=== PATIENT | female | born 1995 | race African-American/Black ===

== ENCOUNTER 2022-12-02 15:06 | Inpatient (IN) | payer OTHER ==
[~2022-12-02] VITALS: Ht 162.6 cm; Wt 63.1 kg
[2022-12-02 15:42] LABS: BASO % 0.1 % (0.0-1.0); EOS % 0.4 % (0.0-3.0); HEMATOCRIT 36.7 % (36.0-47.0); HEMOGLOBIN 11.9 g/dl (12.0-15.5); LYMPH # 1.8 10^3/uL (1.5-5.0); LYMPH % 15.6 % (24.0-44.0); MEAN CORPUSCULAR HEMOGLOBIN 26.2 pg (27.0-33.0); MEAN CORPUSCULAR HGB CONC 32.4 g/dl (32.0-36.5); MEAN CORPUSCULAR VOLUME 80.7 fl (80.0-96.0); MONO # 0.9 10^3/uL (0.0-0.8); MONO % 7.4 % (2.0-8.0); NEUTROPHILS # 8.7 10^3/uL (1.5-8.5); NEUTROPHILS % 76.1 % (36.0-66.0); PLATELET COUNT, AUTOMATED 319 10^3/uL (150-450); RED BLOOD COUNT 4.55 10^6/uL (4.00-5.40); WHITE BLOOD COUNT 11.4 10^3/uL (4.0-10.0)
[2022-12-02] MEDS ORDERED: ACETAMINOPHEN TAB 650MG DOSE (2X325MG) PO ONE (15:55)
[2022-12-02 15:56] LABS: ABG BASE EXCESS -3.7 (-2.0-2.0); ABG HCO3 19.6 MMOL/L (22.0-26.0); ABG O2 SATURATION 97.6 % (95.0-99.0); ABG PARTIAL PRESSURE CO2 30.4 mmHg (35.0-45.0); ABG PARTIAL PRESSURE O2 96.2 mmHg (75.0-100.0); ABG STANDARD HCO3 21.4 MMOL/L. (22.0-26.0); ABG TOTAL CO2 20.6 MMOL/L (22.0-29.0); ABG pH (ARTERIAL) 7.428 UNITS (7.350-7.450)
[2022-12-02] MEDS ORDERED: NS 500 ML IV ONE (16:00)
[2022-12-02 16:08] LABS: ETHYL ALCOHOL (ETHANOL) < 0.003 % (0.000-0.010)
[2022-12-02 16:09] LABS: ACETAMINOPHEN LEVEL < 2.0 UG/ML (10.0-20.0); CPK CREATINE PHOSPHOKINASE 124 U/L (34-145); SALICYLATE LEVEL < 3.0 MG/DL (<30)
[2022-12-02 16:10] LABS: ALBUMIN 3.7 G/DL (3.2-5.2); ALKALINE PHOSPHATASE 55 U/L (46-116); ALT/SGPT 18 U/L (7.0-40); AST/SGOT 11 U/L (<34); BILIRUBIN,DIRECT 0.2 MG/DL (<0.4); BILIRUBIN,TOTAL 0.5 MG/DL (0.3-1.2); BLOOD UREA NITROGEN 12 MG/DL (9-23); CALCIUM LEVEL 8.9 MG/DL (8.5-10.1); CARBON DIOXIDE LEVEL 21 MMOL/L (20-31); CHLORIDE LEVEL 105 MMOL/L (98-107); CK-MB VALUE MASS < 1.0 NG/ML (<3.6); CREATININE FOR GFR 0.67 MG/DL (0.55-1.30); GLOMERULAR FILTRATION RATE > 60.0 (>60); GLUCOSE, FASTING 93 MG/DL (60-100); POTASSIUM SERUM 3.7 MMOL/L (3.5-5.1); SODIUM LEVEL 135 MMOL/L (136-145); TOTAL PROTEIN 7.6 G/DL (5.7-8.2)
[2022-12-02 16:11] LABS: THYROID STIMULATING HORMONE 2.157 uIU/ML (0.55-4.78)
[2022-12-02] MEDS ORDERED: ISOVUE-370 76% 100ML VIAL As Ordered ONE (16:12)
[2022-12-02] MEDS ORDERED: BENA25TA5 PO (16:19)
[2022-12-02] MEDS ORDERED: PRED5TA PO (16:19)
[2022-12-02] MEDS ORDERED: CLAR10CA3 PO (16:19)
[2022-12-02] MEDS ORDERED: PLAQ200T4 PO (16:19)
[2022-12-02] MEDS ORDERED: PEPC1TAB5 PO (16:22)
[2022-12-02] MEDS ORDERED: PREN1CHW6 PO (16:22)
[2022-12-02 17:08] LABS: AMPHETAMINES LEVEL URINE NEGATIVE (NEGATIVE); BARBITURATES URINE NEGATIVE (NEGATIVE); BENZODIAZEPINES URINE NEGATIVE (NEGATIVE); CANNABINOIDS URINE NEGATIVE (NEGATIVE); COCAINE METABOLITE URINE NEGATIVE (NEGATIVE); METHADONE URINE NEGATIVE (NEGATIVE); OPIATES URINE NEGATIVE (NEGATIVE); PHENCYCLIDINE URINE NEGATIVE (NEGATIVE)
[2022-12-02] MEDS ORDERED: LevoFLOXacin IV 750 MG in IV 1 EA IV ONE (17:10)
[2022-12-02] MEDS ORDERED: levETIRAcetam INJection 1,000 MG in D5W 100 ML IV ONE (18:25)
[2022-12-02] MEDS ORDERED: MED REC IN PROGRESS XX SCH (19:35)
[2022-12-02 19:45] LABS: PROCALCITONIN <0.04 ng/ml
[2022-12-02] MEDS ORDERED: ESTR1TAB PV (19:52)
[2022-12-02] MEDS ORDERED: CRIN8GEL4 PV (19:52)
[2022-12-02] MEDS ORDERED: PROG1CAP9 PV (19:52)
[2022-12-02] MEDS ORDERED: PROG50IN4 IM (20:05)
[2022-12-02] MEDS ORDERED: TACR0.5C3 PO (20:05)
[2022-12-02] MEDS ORDERED: ENOX30IN3 SQ (20:05)
[2022-12-02] MEDS ORDERED: HOME MED LIST COMPLETE! XX SCH (20:40)
[2022-12-02] MEDS: PROGESTERONE PV SCH (21:00)
[2022-12-02] MEDS: PROGESTERONE IM SCH (21:00)
[2022-12-03] MEDS ORDERED: UNRESOLVED PATIENT OWN MED ORDER XX SCH (00:01)
[2022-12-03 06:35] LABS: HEMATOCRIT 34.9 % (36.0-47.0); HEMOGLOBIN 11.3 g/dl (12.0-15.5); MEAN CORPUSCULAR HEMOGLOBIN 26.3 pg (27.0-33.0); MEAN CORPUSCULAR HGB CONC 32.4 g/dl (32.0-36.5); MEAN CORPUSCULAR VOLUME 81.2 fl (80.0-96.0); PLATELET COUNT, AUTOMATED 286 10^3/uL (150-450); WHITE BLOOD COUNT 8.6 10^3/uL (4.0-10.0)
[2022-12-03 06:52] LABS: BLOOD UREA NITROGEN 13 MG/DL (9-23); CARBON DIOXIDE LEVEL 21 MMOL/L (20-31); CHLORIDE LEVEL 109 MMOL/L (98-107); CREATININE FOR GFR 0.61 MG/DL (0.55-1.30); GLOMERULAR FILTRATION RATE > 60.0 (>60); GLUCOSE, FASTING 89 MG/DL (60-100); MAGNESIUM LEVEL 1.7 MG/DL (1.8-2.4); POTASSIUM SERUM 4.2 MMOL/L (3.5-5.1); SODIUM LEVEL 138 MMOL/L (136-145)
[2022-12-03] MEDS: ENOXAPARIN 40MG/0.4ML SYRINGE (J1650 PER 10MG) SC SCH (07:40)
[2022-12-03] MEDS ORDERED: MAGNESIUM OXIDE 400MG TAB (MAG-OX) PO ONE (07:45)
[2022-12-03] MEDS ORDERED: levETIRAcetam INJection 500 MG in D5W MINI-BAG PLUS 100 ML IV SCH (08:00)
[2022-12-03] MEDS: PRENATAL VITAMINS CHEWABLE TABLET PO SCH ×2 (09:00→23:00)
[2022-12-03] MEDS ORDERED: ASPI81TA26 PO (10:09)
[2022-12-03] MEDS ORDERED: NOVA1000 SC (10:09)
[2022-12-03] MEDS ORDERED: LEUP1INJ4 INJ (10:09)
[2022-12-03] MEDS: estradioL 1 MG TAB PV SCH (11:27)
[2022-12-03] MEDS: predniSONE 5 MG TAB PO SCH ×2 (11:27→22:51)
[2022-12-03] MEDS: PROGESTERONE PV SCH ×2 (11:27→21:00)
[2022-12-03] MEDS: LORATADINE 10 MG TAB PO SCH (11:27)
[2022-12-03] MEDS: FAMOTIDINE 20 MG TAB PO SCH (11:28)
[2022-12-03] MEDS: TACROLIMUS 0.5MG CAP PO SCH ×2 (11:28→22:52)
[2022-12-03] MEDS: MAG SULF 1GM/100ML (MAG RUN) 1 GM in IV 1 EA IV SCH ×2 (11:31→16:50)
[2022-12-03] MEDS ORDERED: ACETAMINOPHEN TAB 650MG DOSE (2X325MG) PO PRN (12:00)
[2022-12-03] MEDS ORDERED: LORazepam 2 MG/ML 1ML VIAL As Ordered ONE ×2 (12:07→12:15)
[2022-12-03] MEDS: LORazepam 2 MG/ML 1ML VIAL IV PRN ×2 (12:16→13:58)
[2022-12-03] MEDS ORDERED: levETIRAcetam INJection 500 MG in D5W MINI-BAG PLUS 100 ML IV ONE (12:45)
[2022-12-03] MEDS ORDERED: LORazepam 2 MG/ML 1ML VIAL IV PRN (15:00)
[2022-12-03 16:16] VITALS: BP 126/69; O2SAT 99
[2022-12-03 16:30] VITALS: TEMP 98
[2022-12-03] MEDS ORDERED: MAG SULF 1GM/100ML (MAG RUN) 1 GM in IV 1 EA IV ONE (16:35)
[2022-12-03] MEDS: LR 1,000 ML IV SCH (16:49)
[2022-12-03] MEDS: ASPIRIN 81MG ENTERIC TABLET PO SCH (16:50)
[2022-12-03] MEDS ORDERED: LevoFLOXacin IV 750 MG in IV 1 EA IV SCH (18:00)
[2022-12-03 20:00] VITALS: BP 138/75; TEMP 98.3
[2022-12-03] MEDS: PROGESTERONE MICRONIZED 200 MG PV SCH (21:00)
[2022-12-03] MEDS: PROGESTERONE IM SCH (21:00)
[2022-12-03] MEDS ORDERED: levETIRAcetam 250MG TABLET (KEPPRA) PO SCH (21:00)
[2022-12-03] MEDS: diphenhydrAMINE 25MG CAP PO SCH (22:51)
[2022-12-03] MEDS: HYDROXYCHLOROQUINE 200 MG TAB PO SCH (22:53)
[2022-12-03] MEDS: levETIRAcetam INJection 1,000 MG in D5W 100 ML IV SCH (23:00)
[2022-12-03] MEDS: ONDANSETRON 4MG 2ML VIAL IV PRN (23:02)
[2022-12-04] VITALS (7 sets, daily range): BP systolic 102–127; BP diastolic 49–76; TEMP 97–98.3; O2SAT 98–100
[2022-12-04] MEDS: estradioL 1 MG TAB PV SCH ×3 (01:22→21:26)
[2022-12-04] MEDS: LR 1,000 ML IV SCH ×3 (04:30→15:34)
[2022-12-04 06:05] LABS: BASO % 0.1 % (0.0-1.0); EOS % 0.1 % (0.0-3.0); HEMATOCRIT 37.4 % (36.0-47.0); HEMOGLOBIN 11.9 g/dl (12.0-15.5); LYMPH # 1.5 10^3/uL (1.5-5.0); LYMPH % 15.8 % (24.0-44.0); MEAN CORPUSCULAR HEMOGLOBIN 26.3 pg (27.0-33.0); MEAN CORPUSCULAR HGB CONC 31.8 g/dl (32.0-36.5); MEAN CORPUSCULAR VOLUME 82.7 fl (80.0-96.0); MONO # 0.7 10^3/uL (0.0-0.8); MONO % 6.9 % (2.0-8.0); NEUTROPHILS # 7.2 10^3/uL (1.5-8.5); NEUTROPHILS % 76.9 % (36.0-66.0); PLATELET COUNT, AUTOMATED 282 10^3/uL (150-450); RED BLOOD COUNT 4.52 10^6/uL (4.00-5.40); WHITE BLOOD COUNT 9.4 10^3/uL (4.0-10.0)
[2022-12-04 06:41] LABS: BLOOD UREA NITROGEN 10 MG/DL (9-23); CALCIUM LEVEL 9.1 MG/DL (8.5-10.1); CARBON DIOXIDE LEVEL 20 MMOL/L (20-31); CHLORIDE LEVEL 106 MMOL/L (98-107); GLOMERULAR FILTRATION RATE > 60.0 (>60); GLUCOSE, FASTING 86 MG/DL (60-100); MAGNESIUM LEVEL 1.9 MG/DL (1.8-2.4); POTASSIUM SERUM 4.3 MMOL/L (3.5-5.1); SODIUM LEVEL 137 MMOL/L (136-145)
[2022-12-04] MEDS: levETIRAcetam INJection 1,000 MG in D5W 100 ML IV SCH ×2 (08:11→21:34)
[2022-12-04] MEDS: PRENATAL VITAMINS CHEWABLE TABLET PO SCH ×3 (08:12→21:26)
[2022-12-04] MEDS: predniSONE 5 MG TAB PO SCH ×2 (08:12→21:26)
[2022-12-04] MEDS: TACROLIMUS 0.5MG CAP PO SCH ×3 (08:12→21:26)
[2022-12-04] MEDS: ASPIRIN 81MG ENTERIC TABLET PO SCH (08:12)
[2022-12-04] MEDS: FAMOTIDINE 20 MG TAB PO SCH (08:12)
[2022-12-04] MEDS: ENOXAPARIN 40MG/0.4ML SYRINGE (J1650 PER 10MG) SC SCH (08:12)
[2022-12-04] MEDS: LORATADINE 10 MG TAB PO SCH (08:12)
[2022-12-04] MEDS: PROGESTERONE MICRONIZED 200 MG PV SCH ×2 (08:13→21:26)
[2022-12-04] MEDS: PROGESTERONE PV SCH ×2 (08:28→21:26)
[2022-12-04 15:53] LABS: FREE T4 0.88 NG/DL (0.89-1.76)
[2022-12-04] MEDS: HYDROXYCHLOROQUINE 200 MG TAB PO SCH (21:00)
[2022-12-04] MEDS: diphenhydrAMINE 25MG CAP PO SCH ×2 (21:00→21:26)
[2022-12-04] MEDS: PROGESTERONE IM SCH (21:27)
[2022-12-04] MEDS: ONDANSETRON 4MG 2ML VIAL IV PRN (21:45)
[2022-12-05] MEDS: LR 1,000 ML IV SCH ×2 (02:18→08:00)
[2022-12-05 04:14] VITALS: BP 106/71; TEMP 97.5; O2SAT 100
[2022-12-05 07:21] LABS: BASO % 0.1 % (0.0-1.0); EOS % 0.1 % (0.0-3.0); HEMATOCRIT 34.1 % (36.0-47.0); HEMOGLOBIN 11.1 g/dl (12.0-15.5); LYMPH # 1.6 10^3/uL (1.5-5.0); LYMPH % 16.8 % (24.0-44.0); MEAN CORPUSCULAR HEMOGLOBIN 26.7 pg (27.0-33.0); MEAN CORPUSCULAR HGB CONC 32.6 g/dl (32.0-36.5); MONO # 0.7 10^3/uL (0.0-0.8); MONO % 7.5 % (2.0-8.0); NEUTROPHILS # 7.1 10^3/uL (1.5-8.5); NEUTROPHILS % 75.3 % (36.0-66.0); PLATELET COUNT, AUTOMATED 332 10^3/uL (150-450); RED BLOOD COUNT 4.16 10^6/uL (4.00-5.40); WHITE BLOOD COUNT 9.4 10^3/uL (4.0-10.0)
[2022-12-05 07:27] LABS: BLOOD UREA NITROGEN 10 MG/DL (9-23); CALCIUM LEVEL 9.2 MG/DL (8.5-10.1); CARBON DIOXIDE LEVEL 22 MMOL/L (20-31); CHLORIDE LEVEL 105 MMOL/L (98-107); CREATININE FOR GFR 0.59 MG/DL (0.55-1.30); GLOMERULAR FILTRATION RATE > 60.0 (>60); GLUCOSE, FASTING 92 MG/DL (60-100); MAGNESIUM LEVEL 1.7 MG/DL (1.8-2.4); POTASSIUM SERUM 4.3 MMOL/L (3.5-5.1); SODIUM LEVEL 137 MMOL/L (136-145)
[2022-12-05 08:56] VITALS: BP 140/71; TEMP 98.4; O2SAT 99
[2022-12-05] MEDS ORDERED: MAGNESIUM OXIDE 400MG TAB (MAG-OX) PO ONE (09:00)
[2022-12-05] MEDS: predniSONE 5 MG TAB PO SCH ×2 (09:00→09:05)
[2022-12-05] MEDS: ASPIRIN 81MG ENTERIC TABLET PO SCH (09:04)
[2022-12-05] MEDS: PRENATAL VITAMINS CHEWABLE TABLET PO SCH (09:04)
[2022-12-05] MEDS: LORATADINE 10 MG TAB PO SCH (09:05)
[2022-12-05] MEDS: FAMOTIDINE 20 MG TAB PO SCH (09:05)
[2022-12-05] MEDS: ENOXAPARIN 40MG/0.4ML SYRINGE (J1650 PER 10MG) SC SCH (09:05)
[2022-12-05] MEDS: TACROLIMUS 0.5MG CAP PO SCH (09:05)
[2022-12-05] MEDS: estradioL 1 MG TAB PV SCH (09:06)
[2022-12-05] MEDS: PROGESTERONE PV SCH (09:06)
[2022-12-05] MEDS: levETIRAcetam INJection 1,000 MG in D5W 100 ML IV SCH (09:06)
[2022-12-05] MEDS: PROGESTERONE MICRONIZED 200 MG PV SCH (09:07)
[2022-12-05] MEDS ORDERED: KEPP10002 PO ×2 (10:58→17:44)
[2022-12-05] MEDS ORDERED: MAG SULF 1GM/100ML (MAG RUN) 1 GM in IV 1 EA IV ONE (12:00)
== END 2022-12-05 13:15 | disposition home or self-care (01) | DRG 101 ==
LOC: M ED 15:06 → M ED INP 19:06 → M PCU 12-03 15:49
PROVIDERS: ADMIT Family Medicine; ATTEND Internal Medicine
PROC: B246ZZZ Ultrasonography of Right and Left Heart (ICD-10-PCS; principal; 2022-12-04)
DX: G40.909 Epilepsy, unspecified, not intractable, without status epilepticus (principal); R55 Syncope and collapse; I34.1 Nonrheumatic mitral (valve) prolapse; G47.33 Obstructive sleep apnea (adult) (pediatric); J45.909 Unspecified asthma, uncomplicated; E83.42 Hypomagnesemia; R50.9 Fever, unspecified; Z79.52 Long term (current) use of systemic steroids; Z79.899 Other long term (current) drug therapy; Z88.6 Allergy status to analgesic agent; Z88.0 Allergy status to penicillin; Z91.018 Allergy to other foods; Z62.810 Personal history of physical and sexual abuse in childhood

== ENCOUNTER 2022-12-08 09:06 | Emergency (ER) | payer OTHER ==
[~2022-12-08 09:06] MED LIST: ASPI81TA26 PO; BENA25TA5 PO; CLAR10CA3 PO; CRIN8GEL4 PV; ENOX30IN3 SQ; ESTR1TAB PV; KEPP10002 PO; LEUP1INJ4 INJ; NOVA1000 SC; PEPC1TAB5 PO; PLAQ200T4 PO; PRED5TA PO; PREN1CHW6 PO; PROG1CAP9 PV; PROG50IN4 IM; TACR0.5C3 PO
[2022-12-08 09:29] VITALS: BP 126/74; O2SAT 100
[2022-12-08 09:59] VITALS: TEMP 99.4
[2022-12-08 11:51] LABS: HEMATOCRIT 37.7 % (36.0-47.0); HEMOGLOBIN 12.1 g/dl (12.0-15.5); MEAN CORPUSCULAR HEMOGLOBIN 26.2 pg (27.0-33.0); MEAN CORPUSCULAR HGB CONC 32.1 g/dl (32.0-36.5); MEAN CORPUSCULAR VOLUME 81.8 fl (80.0-96.0); PLATELET COUNT, AUTOMATED 415 10^3/uL (150-450); RED BLOOD COUNT 4.61 10^6/uL (4.00-5.40); WHITE BLOOD COUNT 7.2 10^3/uL (4.0-10.0)
[2022-12-08 12:35] LABS: HCG, SERUM QUALITATIVE NEGATIVE (NEGATIVE)
[2022-12-08 13:26] LABS: BLOOD UREA NITROGEN 9 MG/DL (9-23); CALCIUM LEVEL 9.3 MG/DL (8.5-10.1); CARBON DIOXIDE LEVEL 20 MMOL/L (20-31); CHLORIDE LEVEL 105 MMOL/L (98-107); CREATININE FOR GFR 0.59 MG/DL (0.55-1.30); GLOMERULAR FILTRATION RATE > 60.0 (>60); GLUCOSE, FASTING 78 MG/DL (60-100); POTASSIUM SERUM 4.2 MMOL/L (3.5-5.1); SODIUM LEVEL 136 MMOL/L (136-145)
[2022-12-08 13:39] LABS: CPK CREATINE PHOSPHOKINASE 130 U/L (34-145)
== END 2022-12-08 13:09 | disposition home or self-care (01) ==
LOC: M ED 09:06 → EDBD 09:06 → M ED 13:09
DX: G40.89 Other seizures (principal); Z88.0 Allergy status to penicillin; Z88.8 Allergy status to other drugs, medicaments and biological substances; Z91.018 Allergy to other foods; Z79.899 Other long term (current) drug therapy; Z79.82 Long term (current) use of aspirin; Z79.52 Long term (current) use of systemic steroids

== ENCOUNTER 2023-04-01 06:09 | Emergency (ER) | payer OTHER ==
[~2023-04-01] VITALS: Ht 162.6 cm; Wt 63.2 kg
[~2023-04-01 06:09] MED LIST changes: +JOBSMIS65 MC
[2023-04-01] MEDS ORDERED: [UNRECOGNIZED DRUG - CODE] (11:21)
[2023-04-01] MEDS ORDERED: METF-838 (11:21)
[2023-04-01] MEDS ORDERED: NALT50TA4 PO (11:21)
[2023-04-01] MEDS ORDERED: ONDA4TAB6 (11:21)
[2023-04-01 12:04] LABS: BASO # 0.1 10^3/uL (0.0-0.2); BASO % 0.2 % (0.0-1.0); EOS # 0.1 10^3/uL (0.0-0.5); EOS % 0.5 % (0.0-3.0); HEMATOCRIT 35.2 % (36.0-47.0); LYMPH # 3.5 10^3/uL (1.5-5.0); LYMPH % 14.4 % (24.0-44.0); MEAN CORPUSCULAR HEMOGLOBIN 27.3 pg (27.0-33.0); MEAN CORPUSCULAR HGB CONC 34.1 g/dl (32.0-36.5); MONO % 4.1 % (2.0-8.0); NEUTROPHILS # 19.4 10^3/uL (1.5-8.5); NEUTROPHILS % 80.1 % (36.0-66.0); PLATELET COUNT, AUTOMATED 391 10^3/uL (150-450); WHITE BLOOD COUNT 24.2 10^3/uL (4.0-10.0)
[2023-04-01 12:29] LABS: LIPASE 24 U/L (12-53)
[2023-04-01 12:31] LABS: ALBUMIN 3.7 G/DL (3.2-5.2); ALKALINE PHOSPHATASE 91 U/L (46-116); ALT/SGPT 14 U/L (7.0-40); AST/SGOT 11 U/L (<34); BILIRUBIN,DIRECT < 0.1 MG/DL (<0.4); BILIRUBIN,TOTAL 0.2 MG/DL (0.3-1.2); BLOOD UREA NITROGEN 9 MG/DL (9-23); CARBON DIOXIDE LEVEL 22 MMOL/L (20-31); CHLORIDE LEVEL 108 MMOL/L (98-107); CREATININE FOR GFR 0.48 MG/DL (0.55-1.30); GLOMERULAR FILTRATION RATE > 60.0 (>60); GLUCOSE, FASTING 86 MG/DL (60-100); POTASSIUM SERUM 3.4 MMOL/L (3.5-5.1); SODIUM LEVEL 138 MMOL/L (136-145); TOTAL PROTEIN 7.6 G/DL (5.7-8.2)
[2023-04-01] MEDS ORDERED: NS 1,000 ML IV ONE (12:35)
[2023-04-01 13:45] VITALS: BP 122/64; TEMP 99.7; O2SAT 100
== END 2023-04-01 14:36 | disposition home or self-care (01) ==
LOC: M ED 06:09
DX: R19.7 Diarrhea, unspecified (principal); Z88.0 Allergy status to penicillin; Z88.8 Allergy status to other drugs, medicaments and biological substances; Z91.018 Allergy to other foods; Z79.899 Other long term (current) drug therapy; Z79.52 Long term (current) use of systemic steroids; Z79.890 Hormone replacement therapy; Z79.84 Long term (current) use of oral hypoglycemic drugs

== ENCOUNTER 2023-04-09 07:29 | Emergency (ER) | payer OTHER ==
[~2023-04-09] VITALS: Ht 162.6 cm; Wt 63.5 kg
[2023-04-09 07:29] VITALS: BP 132/75; TEMP 98.2; O2SAT 100
[~2023-04-09 07:29] MED LIST changes: +METF-838; +NALT50TA4 PO; +ONDA4TAB6; +[UNRECOGNIZED DRUG - CODE]
== END 2023-04-09 09:59 | disposition home or self-care (01) ==
LOC: M ED 07:29
DX: F43.0 Acute stress reaction (principal); Z33.1 Pregnant state, incidental; Z88.0 Allergy status to penicillin; Z88.8 Allergy status to other drugs, medicaments and biological substances; Z91.018 Allergy to other foods; Z79.899 Other long term (current) drug therapy; Z79.3 Long term (current) use of hormonal contraceptives; Z79.84 Long term (current) use of oral hypoglycemic drugs

== ENCOUNTER 2023-04-14 16:44 | Emergency (ER) | payer OTHER ==
[~2023-04-14] VITALS: Ht 162.6 cm; Wt 63.8 kg
[2023-04-14 18:54] LABS: BASO # 0.1 10^3/uL (0.0-0.2); BASO % 0.2 % (0.0-1.0); EOS % 0.2 % (0.0-3.0); HEMATOCRIT 34.5 % (36.0-47.0); HEMOGLOBIN 11.2 g/dl (12.0-15.5); LYMPH # 2.7 10^3/uL (1.5-5.0); LYMPH % 10.5 % (24.0-44.0); MEAN CORPUSCULAR HEMOGLOBIN 26.2 pg (27.0-33.0); MEAN CORPUSCULAR HGB CONC 32.5 g/dl (32.0-36.5); MEAN CORPUSCULAR VOLUME 80.8 fl (80.0-96.0); MONO % 3.8 % (2.0-8.0); NEUTROPHILS % 84.6 % (36.0-66.0); PLATELET COUNT, AUTOMATED 347 10^3/uL (150-450); RED BLOOD COUNT 4.27 10^6/uL (4.00-5.40)
[2023-04-14 19:21] LABS: BLOOD UREA NITROGEN 10 MG/DL (9-23); CARBON DIOXIDE LEVEL 25 MMOL/L (20-31); CHLORIDE LEVEL 104 MMOL/L (98-107); CREATININE FOR GFR 0.57 MG/DL (0.55-1.30); GLOMERULAR FILTRATION RATE > 60.0 (>60); GLUCOSE, FASTING 100 MG/DL (60-100); POTASSIUM SERUM 3.6 MMOL/L (3.5-5.1); SODIUM LEVEL 137 MMOL/L (136-145)
[2023-04-15 06:38] LABS: CK-MB VALUE MASS < 1.0 NG/ML (<3.6)
[2023-04-15 06:40] LABS: CPK CREATINE PHOSPHOKINASE 75 U/L (34-145); MB/CK RELATIVE INDEX 1.33 (< OR =4)
[2023-04-15 08:33] VITALS: BP 116/66; TEMP 97.8; O2SAT 99
== END 2023-04-15 08:35 | disposition home or self-care (01) ==
LOC: M ED 16:44
DX: O99.411 Diseases of the circulatory system complicating pregnancy, first trimester (principal); O24.111 Pre-existing type 2 diabetes mellitus, in pregnancy, first trimester; Z3A.01 Less than 8 weeks gestation of pregnancy; Z79.4 Long term (current) use of insulin; Z79.899 Other long term (current) drug therapy; Z88.0 Allergy status to penicillin; Z88.6 Allergy status to analgesic agent; Z88.8 Allergy status to other drugs, medicaments and biological substances; Z91.018 Allergy to other foods

== ENCOUNTER 2023-04-20 13:29 | Emergency (ER) | payer OTHER ==
[~2023-04-20] VITALS: Ht 162.6 cm; Wt 63.4 kg
[2023-04-20 16:31] LABS: APPEARANCE, URINE HAZY (CLEAR); BACTERIA, URINE AUTO NEGATIVE (NEGATIVE); BILIRUBIN, URINE AUTO NEGATIVE (NEGATIVE); BLOOD, URINE BLOOD NEGATIVE (NEGATIVE); COLOR, URINE YELLOW (YELLOW); GLUCOSE, URINE (UA) AUTO NEGATIVE (NEGATIVE); KETONE, URINE AUTO NEGATIVE (NEGATIVE); LEUKOCYTE ESTERASE, URINE AUTO 1+ (NEGATIVE); MUCUS, URINE LARGE (NEGATIVE); NITRITE, URINE AUTO NEGATIVE (NEGATIVE); PROTEIN, URINE AUTO 1+ mg/dL (NEGATIVE); RBC, URINE AUTO 4 /HPF (0-3); SPECIFIC GRAVITY URINE AUTO 1.032 (1.002-1.035); SQUAMOUS EPITHELIAL CELL UR AU 5 /HPF (0-6); UROBILINOGEN, URINE AUTO 0.2 mg/dL (0.0-2.0); WBC, URINE AUTO 4 /HPF (0-3)
[2023-04-20 16:35] LABS: HEMATOCRIT 37.6 % (36.0-47.0); HEMOGLOBIN 12.4 g/dl (12.0-15.5); MEAN CORPUSCULAR HEMOGLOBIN 26.3 pg (27.0-33.0); MEAN CORPUSCULAR VOLUME 79.8 fl (80.0-96.0); PLATELET COUNT, AUTOMATED 374 10^3/uL (150-450); RED BLOOD COUNT 4.71 10^6/uL (4.00-5.40); WHITE BLOOD COUNT 7.8 10^3/uL (4.0-10.0)
[2023-04-20 16:49] LABS: ALBUMIN 3.6 G/DL (3.2-5.2); ALKALINE PHOSPHATASE 78 U/L (46-116); ALT/SGPT 13 U/L (7.0-40); AST/SGOT 12 U/L (<34); BILIRUBIN,TOTAL 0.2 MG/DL (0.3-1.2); BLOOD UREA NITROGEN 9 MG/DL (9-23); CALCIUM LEVEL 9.8 MG/DL (8.5-10.1); CARBON DIOXIDE LEVEL 25 MMOL/L (20-31); CHLORIDE LEVEL 105 MMOL/L (98-107); CREATININE FOR GFR 0.56 MG/DL (0.55-1.30); GLOMERULAR FILTRATION RATE > 60.0 (>60); GLUCOSE, FASTING 87 MG/DL (60-100); POTASSIUM SERUM 4.2 MMOL/L (3.5-5.1); SODIUM LEVEL 138 MMOL/L (136-145); TOTAL PROTEIN 7.6 G/DL (5.7-8.2)
[2023-04-20 17:02] LABS: HCG, SERUM QUANTITATIVE 63644.2 MIU/ML (<4.2)
[2023-04-20 19:11] VITALS: BP 111/67; TEMP 99; O2SAT 100
== END 2023-04-20 19:21 | disposition home or self-care (01) ==
LOC: M ED 13:29
DX: O46.91 Antepartum hemorrhage, unspecified, first trimester (principal); Z3A.01 Less than 8 weeks gestation of pregnancy

== ENCOUNTER 2023-05-21 05:59 | Emergency (ER) | payer OTHER ==
[~2023-05-21] VITALS: Ht 160 cm; Wt 62.5 kg
[2023-05-21 09:15] VITALS: BP 119/72; TEMP 98.5; O2SAT 100
== END 2023-05-21 09:23 | disposition home or self-care (01) ==
LOC: M ED 05:59
DX: F32.A Depression, unspecified (principal); J45.909 Unspecified asthma, uncomplicated; I34.1 Nonrheumatic mitral (valve) prolapse

== ENCOUNTER 2023-05-25 12:42 | Emergency (ER) | payer OTHER ==
[~2023-05-25] VITALS: Ht 162.6 cm; Wt 63.1 kg
[2023-05-25 14:00] LABS: BASO % 0.2 % (0.0-1.0); EOS % 0.1 % (0.0-3.0); HEMATOCRIT 38.5 % (36.0-47.0); HEMOGLOBIN 12.7 g/dl (12.0-15.5); LYMPH # 2.1 10^3/uL (1.5-5.0); LYMPH % 22.1 % (24.0-44.0); MEAN CORPUSCULAR HEMOGLOBIN 26.8 pg (27.0-33.0); MEAN CORPUSCULAR VOLUME 81.2 fl (80.0-96.0); MONO # 0.5 10^3/uL (0.0-0.8); MONO % 5.1 % (2.0-8.0); NEUTROPHILS % 72.3 % (36.0-66.0); PLATELET COUNT, AUTOMATED 284 10^3/uL (150-450); RED BLOOD COUNT 4.74 10^6/uL (4.00-5.40); WHITE BLOOD COUNT 9.7 10^3/uL (4.0-10.0)
[2023-05-25 16:26] LABS: APPEARANCE, URINE CLEAR (CLEAR); BACTERIA, URINE AUTO NEGATIVE (NEGATIVE); BILIRUBIN, URINE AUTO NEGATIVE (NEGATIVE); BLOOD, URINE BLOOD NEGATIVE (NEGATIVE); COLOR, URINE YELLOW (YELLOW); GLUCOSE, URINE (UA) AUTO NEGATIVE (NEGATIVE); KETONE, URINE AUTO TRACE mg/dL (NEGATIVE); LEUKOCYTE ESTERASE, URINE AUTO 1+ (NEGATIVE); MUCUS, URINE SMALL (NEGATIVE); NITRITE, URINE AUTO NEGATIVE (NEGATIVE); PROTEIN, URINE AUTO 1+ mg/dL (NEGATIVE); RBC, URINE AUTO 3 /HPF (0-3); SPECIFIC GRAVITY URINE AUTO 1.024 (1.002-1.035); SQUAMOUS EPITHELIAL CELL UR AU 4 /HPF (0-6); UROBILINOGEN, URINE AUTO 0.2 mg/dL (0.0-2.0); WBC, URINE AUTO 2 /HPF (0-3)
[2023-05-25] MEDS ORDERED: CLOT1CRE56 TOP (17:36)
[2023-05-25 17:55] VITALS: BP 109/66; TEMP 99.5; O2SAT 98
== END 2023-05-25 17:57 | disposition home or self-care (01) ==
LOC: M ED 12:42
DX: O20.8 Other hemorrhage in early pregnancy (principal); O23.591 Infection of other part of genital tract in pregnancy, first trimester; Z3A.12 12 weeks gestation of pregnancy; O34.11 Maternal care for benign tumor of corpus uteri, first trimester; O99.511 Diseases of the respiratory system complicating pregnancy, first trimester; Z86.79 Personal history of other diseases of the circulatory system; Z88.0 Allergy status to penicillin; Z88.6 Allergy status to analgesic agent; Z88.8 Allergy status to other drugs, medicaments and biological substances; Z91.018 Allergy to other foods

== ENCOUNTER 2023-05-27 16:59 | Inpatient (IN) | payer OTHER ==
[~2023-05-27] VITALS: Ht 160 cm; Wt 59.9 kg
[~2023-05-27 16:59] MED LIST changes: +CLOT1CRE56 TOP
[2023-05-27 17:43] LABS: HEMATOCRIT 37.5 % (36.0-47.0); HEMOGLOBIN 12.4 g/dl (12.0-15.5); MEAN CORPUSCULAR HEMOGLOBIN 26.8 pg (27.0-33.0); MEAN CORPUSCULAR HGB CONC 33.1 g/dl (32.0-36.5); PLATELET COUNT, AUTOMATED 294 10^3/uL (150-450); RED BLOOD COUNT 4.63 10^6/uL (4.00-5.40); WHITE BLOOD COUNT 8.7 10^3/uL (4.0-10.0)
[2023-05-27 18:05] LABS: ETHYL ALCOHOL (ETHANOL) < 0.003 % (0.000-0.010)
[2023-05-27 18:06] LABS: SALICYLATE LEVEL < 3.0 MG/DL (<30)
[2023-05-27 18:07] LABS: ALBUMIN 3.6 G/DL (3.2-5.2); ALKALINE PHOSPHATASE 44 U/L (46-116); ALT/SGPT 11 U/L (7.0-40); AST/SGOT 13 U/L (<34); BILIRUBIN,DIRECT < 0.1 MG/DL (<0.4); BILIRUBIN,TOTAL 0.3 MG/DL (0.3-1.2); BLOOD UREA NITROGEN 12 MG/DL (9-23); CALCIUM LEVEL 9.5 MG/DL (8.5-10.1); CARBON DIOXIDE LEVEL 23 MMOL/L (20-31); CHLORIDE LEVEL 105 MMOL/L (98-107); CREATININE FOR GFR 0.47 MG/DL (0.55-1.30); GLOMERULAR FILTRATION RATE > 60.0 (>60); GLUCOSE, FASTING 101 MG/DL (60-100); POTASSIUM SERUM 4.3 MMOL/L (3.5-5.1); SODIUM LEVEL 138 MMOL/L (136-145); TOTAL PROTEIN 7.5 G/DL (5.7-8.2)
[2023-05-27 18:15] LABS: AMPHETAMINES LEVEL URINE NEGATIVE (NEGATIVE); BARBITURATES URINE NEGATIVE (NEGATIVE); BENZODIAZEPINES URINE NEGATIVE (NEGATIVE); COCAINE METABOLITE URINE NEGATIVE (NEGATIVE); METHADONE URINE NEGATIVE (NEGATIVE); OPIATES URINE NEGATIVE (NEGATIVE)
[2023-05-27 18:16] LABS: CANNABINOIDS URINE NEGATIVE (NEGATIVE); PHENCYCLIDINE URINE NEGATIVE (NEGATIVE)
[2023-05-27 18:35] LABS: HCG, SERUM QUANTITATIVE 171667.6 MIU/ML (<4.2)
[2023-05-27] MEDS ORDERED: MOM 30ML SUSPENSION UDC PO PRN (21:20)
[2023-05-27] MEDS ORDERED: traZODone 50 MG TAB PO PRN (21:20)
[2023-05-27] MEDS ORDERED: MAALOX 30 ML SUSP *UDC PO PRN (21:20)
[2023-05-27] MEDS ORDERED: ACETAMINOPHEN TAB 650MG DOSE (2X325MG) PO PRN (21:20)
[2023-05-27] MEDS ORDERED: IBUPROFEN 400MG TAB PO PRN (21:20)
[2023-05-27] MEDS ORDERED: diphenhydrAMINE 25MG CAP PO PRN (21:20)
[2023-05-27] MEDS ORDERED: LOVE1INJ2 SC (21:45)
[2023-05-27] MEDS ORDERED: ESTR2TAB3 PV (21:45)
[2023-05-27] MEDS ORDERED: CLOT45CR8 PV (21:46)
[2023-05-27] MEDS ORDERED: ONDA4TAB6 PO (21:46)
[2023-05-27] MEDS ORDERED: KEPP10002 PO (21:46)
[2023-05-27] MEDS ORDERED: FOLI400T5 PO (21:46)
[2023-05-27] MEDS ORDERED: HOME MED LIST COMPLETE! XX SCH (21:50)
[2023-05-27] MEDS ORDERED: EPIP0.3I2 IM (22:03)
[2023-05-28 00:44] VITALS: BP 111/55; TEMP 98.5; O2SAT 100
[2023-05-28 06:21] VITALS: BP 144/79; TEMP 97.8; O2SAT 100
[2023-05-28] MEDS: FLUoxetine 10 MG CAP PO SCH (13:59)
[2023-05-28 16:26] VITALS: BP 132/76; TEMP 98.5; O2SAT 99
[2023-05-29 06:26] VITALS: BP 133/73; TEMP 98.2; O2SAT 99
[2023-05-29] MEDS: PRENATAL VITAMINS CHEWABLE TABLET PO SCH (09:00)
[2023-05-29] MEDS: BENZOCAINE 10% 9GM TUBE (ANBESOL) TOP PRN (12:21)
[2023-05-29 16:14] VITALS: BP 120/74; TEMP 97.3; O2SAT 99
[2023-05-29] MEDS: CLOTRIMAZOLE 1% VAG CR 45 GM TOP SCH (21:00)
[2023-05-30] MEDS: ALBUTEROL 90 MCG/ACT 8GM HFA INHALER INH PRN (00:45)
[2023-05-30] MEDS: levETIRAcetam 250MG TABLET (KEPPRA) PO SCH (14:45)
[2023-05-30 16:23] VITALS: BP 126/77; TEMP 98.2; O2SAT 98
[2023-05-30] MEDS: ONDANSETRON 4MG ORAL DISINTEGRATING TAB PO PRN (18:38)
[2023-05-31 07:02] VITALS: BP 139/92; TEMP 98.8; O2SAT 100
[2023-05-31] MEDS ORDERED: CALCIUM CARBONATE 500 MG CHEW U/D PO PRN (08:10)
[2023-05-31 16:14] VITALS: BP 119/76; TEMP 97.4; O2SAT 100
[2023-06-01 06:51] VITALS: BP 112/62; TEMP 99.1; O2SAT 99
[2023-06-01 18:53] VITALS: BP 129/79; TEMP 97.7; O2SAT 100
[2023-06-02 06:19] VITALS: BP 129/66; TEMP 99.3; O2SAT 100
[2023-06-02] MEDS: SERTRALINE HCL 25 MG TABLET PO SCH (09:00)
[2023-06-03 06:27] VITALS: BP 122/78; TEMP 99.5; O2SAT 100
[2023-06-03] MEDS: FOLIC ACID 1MG TAB PO SCH (09:00)
[2023-06-03] MEDS ORDERED: FLUCONAZOLE 50MG TABLET PO ONE (17:00)
[2023-06-03] MEDS: ONDANSETRON 4MG 2ML VIAL IM ONE (18:44)
[2023-06-04] MEDS: ONDANSETRON 4MG 2ML VIAL IM PRN (10:55)
[2023-06-04] MEDS: ESCITALOPRAM OXALATE 5MG TABLET (LEXAPRO) PO SCH (12:02)
[2023-06-04] MEDS: FLUCONAZOLE 50MG TABLET PO ONE (12:34)
[2023-06-04 18:58] VITALS: BP 127/67; TEMP 98.2; O2SAT 100
[2023-06-05 14:36] VITALS: BP 132/76; TEMP 96.1; O2SAT 99
[2023-06-06 06:30] VITALS: BP 141/78; TEMP 99.3; O2SAT 100
[2023-06-06 16:10] VITALS: BP 135/78; TEMP 97.1; O2SAT 100
[2023-06-06] MEDS: METOCLOPRAMIDE 10MG TAB PO PRN (17:20)
[2023-06-07 06:39] VITALS: BP 126/61; TEMP 98.2; O2SAT 98
[2023-06-07 17:48] VITALS: BP 140/99; TEMP 97.3; O2SAT 100
[2023-06-08 06:55] VITALS: TEMP 99.2; O2SAT 97
[2023-06-08 18:22] VITALS: BP 136/82; TEMP 99.2
[2023-06-09 06:37] VITALS: BP 116/60; TEMP 98; O2SAT 99
[2023-06-09 15:10] VITALS: BP 116/66; TEMP 97.8
[2023-06-10 06:37] VITALS: BP 133/71; TEMP 98.5; O2SAT 99
[2023-06-10] MEDS ORDERED: LEXA5TAB13 PO (10:23)
== END 2023-06-10 12:21 | disposition home or self-care (01) | DRG 831 ==
LOC: M ED 16:59 → EDBD 16:59 → M ED INP 21:19 → M PSY 05-28 00:20
PROVIDERS: ADMIT Student in an Organized Health Care Education/Training Program; ATTEND Student in an Organized Health Care Education/Training Program
DX: O99.341 Other mental disorders complicating pregnancy, first trimester (principal); U07.1 COVID-19; R45.851 Suicidal ideations; O98.511 Other viral diseases complicating pregnancy, first trimester; O23.591 Infection of other part of genital tract in pregnancy, first trimester; F32.9 Major depressive disorder, single episode, unspecified; Z3A.13 13 weeks gestation of pregnancy; F43.9 Reaction to severe stress, unspecified; F60.3 Borderline personality disorder; O26.891 Other specified pregnancy related conditions, first trimester; O99.351 Diseases of the nervous system complicating pregnancy, first trimester; G47.33 Obstructive sleep apnea (adult) (pediatric); O09.811 Supervision of pregnancy resulting from assisted reproductive technology, first trimester; Z91.51 Personal history of suicidal behavior; Z91.52 Personal history of nonsuicidal self-harm; Z79.899 Other long term (current) drug therapy; Z88.0 Allergy status to penicillin; Z88.5 Allergy status to narcotic agent; Z88.8 Allergy status to other drugs, medicaments and biological substances; Z91.018 Allergy to other foods; R07.89 Other chest pain

== ENCOUNTER 2023-06-10 13:58 | Emergency (ER) | payer OTHER ==
[~2023-06-10] VITALS: Ht 160 cm; Wt 59.9 kg
[~2023-06-10 13:58] MED LIST changes: +CLOT45CR8 PV; +EPIP0.3I2 IM; +ESTR2TAB3 PV; +FOLI400T5 PO; +LEXA5TAB13 PO; +LOVE1INJ2 SC; +ONDA4TAB6 PO
[2023-06-10 14:41] VITALS: BP 126/71; TEMP 98.2; O2SAT 99
[2023-06-10 14:48] LABS: HEMATOCRIT 37.2 % (36.0-47.0); HEMOGLOBIN 12.5 g/dl (12.0-15.5); MEAN CORPUSCULAR HGB CONC 33.6 g/dl (32.0-36.5); MEAN CORPUSCULAR VOLUME 80.3 fl (80.0-96.0); PLATELET COUNT, AUTOMATED 294 10^3/uL (150-450); RED BLOOD COUNT 4.63 10^6/uL (4.00-5.40)
[2023-06-10 15:09] LABS: AMPHETAMINES LEVEL URINE NEGATIVE (NEGATIVE)
[2023-06-10 15:10] LABS: BARBITURATES URINE NEGATIVE (NEGATIVE); BENZODIAZEPINES URINE NEGATIVE (NEGATIVE); CANNABINOIDS URINE NEGATIVE (NEGATIVE); COCAINE METABOLITE URINE NEGATIVE (NEGATIVE); METHADONE URINE NEGATIVE (NEGATIVE); OPIATES URINE NEGATIVE (NEGATIVE); PHENCYCLIDINE URINE NEGATIVE (NEGATIVE)
[2023-06-10 15:13] LABS: ETHYL ALCOHOL (ETHANOL) 0.004 % (0.000-0.010)
[2023-06-10 15:14] LABS: SALICYLATE LEVEL < 3.0 MG/DL (<30)
[2023-06-10 15:15] LABS: ALBUMIN 3.5 G/DL (3.2-5.2); ALKALINE PHOSPHATASE 41 U/L (46-116); ALT/SGPT 12 U/L (7.0-40); AST/SGOT 15 U/L (<34); BILIRUBIN,DIRECT < 0.1 MG/DL (<0.4); BILIRUBIN,TOTAL 0.3 MG/DL (0.3-1.2); BLOOD UREA NITROGEN 6 MG/DL (9-23); CALCIUM LEVEL 8.8 MG/DL (8.5-10.1); CARBON DIOXIDE LEVEL 22 MMOL/L (20-31); CHLORIDE LEVEL 104 MMOL/L (98-107); CREATININE FOR GFR 0.41 MG/DL (0.55-1.30); GLOMERULAR FILTRATION RATE > 60.0 (>60); GLUCOSE, FASTING 79 MG/DL (60-100); POTASSIUM SERUM 3.9 MMOL/L (3.5-5.1); SODIUM LEVEL 134 MMOL/L (136-145); TOTAL PROTEIN 7.1 G/DL (5.7-8.2)
[2023-06-10 15:16] LABS: THYROID STIMULATING HORMONE 0.528 uIU/ML (0.55-4.78)
[2023-06-10 15:17] LABS: HCG, SERUM QUALITATIVE POSITIVE (NEGATIVE)
== END 2023-06-10 21:40 | disposition home or self-care (01) ==
LOC: M ED 13:58
DX: O99.342 Other mental disorders complicating pregnancy, second trimester (principal); Z76.5 Malingerer [conscious simulation]; O99.512 Diseases of the respiratory system complicating pregnancy, second trimester; O99.352 Diseases of the nervous system complicating pregnancy, second trimester; Z3A.14 14 weeks gestation of pregnancy; Z91.51 Personal history of suicidal behavior; Z79.899 Other long term (current) drug therapy; Z88.0 Allergy status to penicillin; Z88.6 Allergy status to analgesic agent; Z88.8 Allergy status to other drugs, medicaments and biological substances; Z91.018 Allergy to other foods

== ENCOUNTER → 2023-07-28 | Outpatient (CLI) | payer OTHER ==
[2023-07-28 12:39] LABS: BASO % 0.1 % (0.0-1.0); EOS % 0.5 % (0.0-3.0); HEMATOCRIT 34.3 % (36.0-47.0); HEMOGLOBIN 11.4 g/dl (12.0-15.5); LYMPH # 1.9 10^3/uL (1.5-5.0); MEAN CORPUSCULAR HGB CONC 33.2 g/dl (32.0-36.5); MEAN CORPUSCULAR VOLUME 81.3 fl (80.0-96.0); MONO # 0.7 10^3/uL (0.0-0.8); MONO % 9.6 % (2.0-8.0); NEUTROPHILS # 5.1 10^3/uL (1.5-8.5); NEUTROPHILS % 65.4 % (36.0-66.0); PLATELET COUNT, AUTOMATED 267 10^3/uL (150-450); RED BLOOD COUNT 4.22 10^6/uL (4.00-5.40); WHITE BLOOD COUNT 7.7 10^3/uL (4.0-10.0)
== END ==
LOC: M PLALAB 11:01
PROVIDERS: ATTEND Internal Medicine Hematology
DX: R76.0 Raised antibody titer (principal)

== ENCOUNTER 2023-09-23 19:28 | Outpatient (CLI) | payer OTHER ==
[~2023-09-23] VITALS: Ht 162.6 cm; Wt 74.1 kg
[~2023-09-23 19:28] MED LIST changes: +ONDA-282; +ONDA-282 PO; -ONDA4TAB6; -ONDA4TAB6 PO
[2023-09-23 19:53] VITALS: BP 122/78
[2023-09-23 21:35] VITALS: BP 122/77
[2023-09-23 23:16] LABS: Trichomonas vaginalis (AMP) NOT DETECTED (NEGATIVE)
[2023-09-23 23:40] LABS: GC DNA AMPLIFICATION NEGATIVE (NEGATIVE)
== END 2023-09-23 22:00 | disposition home or self-care (01) ==
LOC: M LDO 19:28
PROVIDERS: ATTEND Advanced Practice Midwife
DX: O26.893 Other specified pregnancy related conditions, third trimester (principal); O09.813 Supervision of pregnancy resulting from assisted reproductive technology, third trimester; N89.8 Other specified noninflammatory disorders of vagina; Z3A.29 29 weeks gestation of pregnancy
CPT/HCPCS: 59025; 87661; 87810; 87850; G0463

== ENCOUNTER → 2023-12-16 | Outpatient (REF) | LOC: M PLAIMG 13:27 | PROVIDERS: ATTEND Internal Medicine | DX: R06.02 Shortness of breath (principal) ==